=== PATIENT | male | born 1960 | race Caucasian/White ===

== ENCOUNTER 2021-09-09 19:24 | Emergency (ER) | payer OTHER, SELFPAY ==
[2021-09-09 19:29] VITALS: BP 127/66; PULSE 73; RESP 18; TEMP 36.6; O2SAT 100; BMI 44.1
--- NOTE | 2021-09-09 19:36 | XRR_ITS ---
PROCEDURE INFORMATION: Exam: XR Left Knee Exam date and time: 09/09/2021 7:39 PM Age: 61 years old Clinical indication: Injury or trauma; Fall; Sprain or strain; Patella or knee; Left TECHNIQUE: Imaging protocol: Radiologic exam of the Left knee. Views: 3 views. COMPARISON: No relevant prior studies available. FINDINGS: Bones/joints: Normal. Soft tissues: Normal. XR/XR knee LT 3V* [id number] IMPRESSION: No acute findings.
--- NOTE | 2021-09-09 20:02 | ED_ITS ---
HPI - Fall General: Chief Complaint: Fall Stated Complaint: Knee injury Time Seen by Provider: 09/09/21 19:38 History of Present Illness: Patient is a 61-year-old male who comes to the ED with left knee injury. Patient is not from this area and lives in [facility] and came down to [place]. He was standing in the mud and slipped causing him to fall down and twisted his left knee. He says his left knee popped out of place and he straightened it back out and went to stand on it and it twisted and popped out of place again. He then straightened it out and called EMS for help. EMS put him in a temporary splint and brought him here to the ED. Patient says his pain is mild and does not need anything for pain currently. Says pain worsens if he does weight-bear. He denies any head trauma or loss of consciousness. Associated symptoms-after fall: Denies abdominal pain, chest pain, headache(s), hematuria or neck pain Review of Systems Const: Denies: fever(s), chills or fatigue Eyes: Denies: change in vision or eye discomfort ENMT: Denies: throat pain, odynophagia, nasal discharge or nasal congestion Card: Denies: chest pain, palpitations, edema, swelling of feet/ankles, dyspnea on exertion or orthopnea Resp: Denies: dyspnea, productive cough or non-productive cough GI: Denies: abdominal pain, nausea, vomiting, diarrhea, constipation or hematochezia : Denies: flank pain, difficulty urinating, dysuria or hematuria Musc: Reports: extremity pain (left knee pain); Denies: neck pain, back pain or extremity swelling Skin/Breast: Denies: rash or new lesions Neuro: Denies: headache(s), numbness in extremities or weakness in extremities PFS ED PFSH: Medical History No pertinent family history Surgical History No pertinent past surgical history Physical Exam Const: COMMON NORMALS: no acute distress, patient oriented x3 and alert GENERAL APPEARANCE: cooperative and comfortable HENMT: COMMON NORMALS: normocephalic HEAD & SCALP: normocephalic MOUTH: Normal oral and palatal mucosa present THROAT: posterior oropharynx normal and uvula midline Neck/C-Spine: COMMON NORMALS: supple GENERAL: Yes normal visual inspection Resp: COMMON NORMALS: normal respiratory effort, No retractions, No use of accessory muscles and clear to auscultation bilaterally AUSCULTATION: clear to auscultation bilaterally Cardio: COMMON NORMALS: regular rate, regular rhythm, S1 normal heart sound present, S2 normal heart sound present, No gallops present (Cardio), No clicks present (Cardio), No murmurs present (Cardio) and Peripheral pulses 2+ throughout RATE: regular rate RHYTHM: regular rhythm HEART SOUNDS: S1 normal heart sound present and S2 normal heart sound present PERIPHERAL PULSES: Peripheral pulses 2+ throughout GI: COMMON NORMALS: Normal to inspection, nondistended, normoactive bowel sounds present, Soft to palpation, non-tender and no masses PALPATION: Yes Soft to palpation : COMMON NORMALS: Yes no CVA tenderness BLADDER/KIDNEY EXAM: Yes no CVA tenderness Back/Pelvis: COMMON NORMALS: no CVA tenderness Extremity: COMMON NORMALS: normal to inspection and no pedal edema NARRATIVE EXTREMITY EXAM: Limited range of motion and left knee due to pain. Left lower extremity was neurovascular tact. He cannot bear weight due to pain Neuro: COMMON NORMALS: patient oriented x3 and moves all extremities SENSORIUM/ORIENTATION: Yes alert Skin: GENERAL SKIN EXAM: dry skin Course Vital Signs: Vital signs: Vital Signs Temperature 98 F 09/09/21 19:29 Pulse Rate 73 09/09/21 19:29 Respiratory Rate 18 09/09/21 19:29 Blood Pressure 127/66 09/09/21 19:29 Pulse Oximetry 100 09/09/21 19:29 MDM - Fall Medical Decision Making Patient is a 61-year-old male who comes to the ED with left knee injury. Patient is not from this area and lives in [facility] and came down to [place]. He was standing in the mud and slipped causing him to fall down and twisted his left knee. Vitals are stable. Limited range of motion and left knee due to pain. Left lower extremity was neurovascular tact. He cannot bear weight due to pain. X-ray of the left knee showed no acute fractures or findings. Due to patient being unable to bear weight on left leg he was put in a knee immobilizer and given crutches. He is diagnosed of left knee injury. Patient was told to follow-up with his PCP and get referral to orthopedic doctor when he gets back home to [place]. Return to ED precautions given. Patient understood agree with plan. Lab Data Radiology Impressions Knee X-Ray 09/09/21 19:36 IMPRESSION: No acute findings. Discharge Plan Discharge Patient Disposition: Home Clinical Impression: Injury of knee, left Qualifiers: Encounter type: initial encounter Qualified Code(s): S89.92XA - Unspecified injury of left lower leg, initial encounter Condition: Stable Discharge Orders: Discharge ED (Routine); Ordered 09/09/21 Ordered By: Timothy River Discharge Diet: Regular Discharge Activity: Limit activity as instructed and Use walker/crutches as instructed Patient Instructions: Knee Pain (ED) Activity Restrictions/Additional Instructions: Follow-up with medical provider as directed in the next 7 to 10 days reevaluation. Contact local orthopedic doctor in [place], [place] to get lef t knee reevaluated. rest, ice and elevate left knee. Limit weightbearing and wear knee immobilizer and use crutches until cleared by orthopedic. Take [id number] ibuprofen or Tylenol for pain. Return to the ER or your medical provider if condition worsens. Please read and understand discharge instructions. Thank you for choosing [facility] for your healthcare needs today. Please realize this is an emergency room and that we are providing you with a medical screening exam and this may not be complete and all inclusive of all the testing and or work up that you may need to determine your ailment or severity of your illness. It is very important that you follow up as instructed or that you return to the Emergency Department should you have concerns or if your condition changes or worsens in any way. Coding Level of Care Code ED Mine Technician for Dorothy Ceballos Exam Comprehensive
== END 2021-09-09 21:22 | disposition home or self-care (01) ==
PROVIDERS: Emergency Provider Physician Assistant
DX: S89.92XA Unspecified injury of left lower leg, initial encounter (principal); W01.0XXA Fall on same level from slipping, tripping and stumbling without subsequent striking against object, initial encounter
CPT/HCPCS: 29530; 73562; 99283; E0114